=== PATIENT | female | born 1970 | race Native Hawaiian/Other Pacific Islander ===

== ENCOUNTER 2016-10-16 00:26 | Emergency (ER) | payer OTHER ==
[~2016-10-16] VITALS: Ht 165.1 cm; Wt 98.9 kg
[~2016-10-16 00:26] MED LIST: AMLO2.5T PO; MECLIZINE12.5 MG OR; SPIR25TA66 PO
[2016-10-16 02:04] LABS: PLATELET COUNT 380 K/uL (152-353)
[2016-10-16 02:06] LABS: POTASSIUM 4.3 mmol/L (3.6-5.2); SODIUM 135 mmol/L (136-145)
[2016-10-16 02:52] VITALS: BP 150/96; TEMP 98.1
== END 2016-10-16 02:53 | disposition home or self-care (01) ==
LOC: ED 00:26
PROVIDERS: Family Medicine
DX: N23 Unspecified renal colic (principal)
CPT/HCPCS: 80053; 81000; 85027; 96361; 96374; 99284; J1885

== ENCOUNTER 2016-11-19 22:26 | Emergency (ER) | payer OTHER ==
[~2016-11-19] VITALS: Ht 165.1 cm; Wt 70.3 kg
[2016-11-19 23:14] VITALS: BP 137/92; TEMP 98.6
== END 2016-11-19 23:17 | disposition home or self-care (01) ==
LOC: ED 22:26
DX: N32.89 Other specified disorders of bladder (principal); R10.84 Generalized abdominal pain
CPT/HCPCS: 96372; 99282; J1885

== ENCOUNTER 2016-11-24 21:55 | Emergency (ER) | payer OTHER ==
[~2016-11-24] VITALS: Ht 165.1 cm; Wt 63.5 kg
[2016-11-24 23:59] VITALS: BP 145/89; TEMP 98.4
== END 2016-11-24 23:55 | disposition home or self-care (01) ==
LOC: ED 21:55
DX: S90.31XA Contusion of right foot, initial encounter (principal); I10 Essential (primary) hypertension; W22.09XA Striking against other stationary object, initial encounter; Y92.098 Other place in other non-institutional residence as the place of occurrence of the external cause
CPT/HCPCS: 99282

== ENCOUNTER 2017-03-05 21:16 | Emergency (ER) | payer OTHER ==
[~2017-03-05] VITALS: Ht 165.1 cm; Wt 94.3 kg
[2017-03-05 23:26] VITALS: BP 142/91; TEMP 98.2
== END 2017-03-05 23:31 | disposition home or self-care (01) ==
LOC: ED 21:16
DX: M54.2 Cervicalgia (principal); M43.6 Torticollis
CPT/HCPCS: 99282

== ENCOUNTER 2017-04-10 23:23 | Emergency (ER) | payer OTHER ==
[~2017-04-10] VITALS: Ht 165.1 cm; Wt 63.5 kg
[2017-04-10] MEDS ORDERED: MECLIZINE 2525 MG PO (23:47)
[2017-04-11 00:53] LABS: PLATELET COUNT 338 K/uL (152-353)
[2017-04-11 01:12] LABS: POTASSIUM 4.2 mmol/L (3.6-5.2)
[2017-04-11 03:38] VITALS: BP 155/97; TEMP 98.4
== END 2017-04-11 03:44 | disposition home or self-care (01) ==
LOC: ED 23:23
DX: N20.0 Calculus of kidney (principal)
CPT/HCPCS: 36415; 80053; 81000; 85027; 96374; 99284; J1885; Q9963

== ENCOUNTER 2017-06-01 20:32 | Emergency (ER) | payer OTHER ==
[~2017-06-01] VITALS: Ht 162.6 cm; Wt 90.7 kg
[~2017-06-01 20:32] MED LIST changes: +MECLIZINE 2525 MG PO
[2017-06-01 20:37] VITALS: BP 138/87; TEMP 97.9
== END 2017-06-01 21:04 | disposition home or self-care (01) ==
LOC: ED 20:32
DX: R21 Rash and other nonspecific skin eruption (principal)
CPT/HCPCS: 99281